=== PATIENT | female | born 1995 | race Caucasian/White ===

== ENCOUNTER 2016-05-02 17:24 | Inpatient (IN) | payer BC ==
[~2016-05-02] VITALS: Ht 166.4 cm; Wt 68.5 kg
--- NOTE | ~2016-05-02 | ER ---
PATIENT'S NAME: SIMEON CARTER [facility] AGE: 20 Y [address] ROOM: [place] [address] LOCATION: [facility] [place] ADMIT DATE: 05/02/2016 ER/Outpatient Report DISCHARGE DATE: FAMILY PHYSICIAN: Madelyn Nieto MD ATTENDING PHYSICIAN: SHAUNA DENNEY TIME OF ARRIVAL: 1729 hours. TIME OF EXAM: 1729 hours. CHIEF COMPLAINT: Right lower quadrant abdominal pain. HISTORY OF PRESENT ILLNESS: The patient states she woke up at about 06:30 this morning, had some generalized abdominal pain, it has worsened throughout the day, it occurs about 1:30 this afternoon. She states the pain became more constant, it waved in severity, but it just seemed different than her normal abdominal pain that she has with her Crohn's disease. She reports she did have some problems with constipation over the weekend, took some MiraLAX, had a large stool on Friday, and then has had normal stools on a daily basis ever since Friday. She states she is nauseated today, but has not vomited. Pain is localized into the right lower quadrant. She did go to Dr. Madelyn Nieto's office this afternoon and was evaluated there. They did do a CBC, white count was 7.3, hemoglobin was 13.9 with hematocrit of 40.3. Chem panel was completed and is within normal limits. They did do UA on her. It shows rare white cells, trace bacteria. Dipstick showed positive ketones and trace of blood. Dr. Nieto was concerned with the pain being localized in the right lower quadrant and sent her here to the ER for further evaluation. ALLERGIES: LACTOSE INTOLERANCE, WHEAT. NO KNOWN DRUG ALLERGIES. CURRENT MEDICATIONS: Current medications are available on the chart and were reviewed by me. PAST MEDICAL HISTORY: Crohn's disease without any complication, has not had any abdominal surgeries; rheumatoid arthritis, and allergic rhinitis. PAST SURGERIES: Had tear duct surgery as a baby and had placement of a Mirena. PATIENT'S NAME: SIMEON CARTER [facility] AGE: 20 Y [address] ROOM: [place] [address] LOCATION: [facility] [place] ADMIT DATE: 05/02/2016 ER/Outpatient Report DISCHARGE DATE: FAMILY PHYSICIAN: Madelyn Nieto MD ATTENDING PHYSICIAN: SHAUNA DENNEY SOCIAL HISTORY: She presents to the ER with her mom. She is currently a student. REVIEW OF SYSTEMS: All negative other than those mentioned in the HPI. PHYSICAL EXAMINATION: VITAL SIGNS: She weighed 69.3 kg. Blood pressure is 145/74, pulse of 117, respirations 16, temp of 100.4, tympanic, and O2 sat was 98% on room air. GENERAL: She is awake, alert, and oriented x4. SKIN: [place], warm, and dry. RESPIRATIONS: Even and nonlabored. Lung sounds were clear throughout. HEART: Regular rate and rhythm. ABDOMEN: Soft and nondistended. Bowel sounds are present. She is very tender in the right lower quadrant. Mild palpation caused her to start crying. NEUROLOGIC: She walks with a steady even gait. Does not stoop over as in discomfort. LABORATORY DATA: She was able to give us a clean-catch UA upon arrival to the ER. Urine was done and it was negative. EMERGENCY DEPARTMENT COURSE: Saline lock was initiated. She was given Zofran 4 mg IV and morphine [address] of the abdomen was completed. Radiologist states that the appendix are not easily visualized, he does not see any kind of abscess, she does have some free fluid, and he questions about possible intussusception. The patient was reviewed with Dr. Culp. Dr. Felix was contacted. He felt at this time she sounded more like a flare-up of her Crohn's versus a surgical problem. I did call and talk to Dr. Kay. He agrees that the patient needs to be placed in observation for fluids, pain control, antibiotics, and control of the Crohn's flare up. Dr. Painter, the hospitalist was contacted, agrees to admit the patient. IMPRESSION: 1. Right lower quadrant abdominal pain. 2. Crohn's disease. PLAN: The patient will be admitted per hospitalist with GI consult. Dr. Denney did come down to the ER and examine the patient briefly before she went upstairs. The patient and her parents are aware of the plan of care. PATIENT'S NAME: SIMEON CARTER [facility] AGE: 20 Y [address] ROOM: [place] [address] LOCATION: [facility] [place] ADMIT DATE: 05/02/2016 ER/Outpatient Report DISCHARGE DATE: FAMILY PHYSICIAN: Madelyn Nieto MD ATTENDING PHYSICIAN: SHAUNA DENNEY GA PADILLA DO DJ/modl /[id number] d: 05/03/16 0103 t: 05/11/16 0854, OUTPATIENT REPORT
--- NOTE | ~2016-05-02 | HP ---
PATIENT'S NAME: SIMEON CARTER [facility] AGE: 20 Y [address] ROOM: [place] [address] LOCATION: [facility] [place] ADMIT DATE: 05/02/2016 History & Physical DISCHARGE DATE: FAMILY PHYSICIAN: Madelyn Nieto MD ATTENDING PHYSICIAN: SHAUNA DENNEY DATE OF SERVICE: CHIEF COMPLAINT: Abdominal pain. HISTORY OF PRESENT ILLNESS: This is a 20-year-old female with a past medical history remarkable for Crohn's disease diagnosed 9 years ago already, her primary residential program director is in [place], [place], and she has had 2 flare of Crohn's disease attack in the past. The story is that last Friday the patient was suffering from constipation; so, she took some MiraLAX and on this Friday she had a normal bowel movement. However, this morning, she started to experience this right lower quadrant abdominal pain about a 3/10 in intensity gradually getting worse up to 8/10, it is constant, and it feels like a dull sharp type of pain. Associated with nausea, but she did not vomit. Her last bowel movement was this morning and it was normal. Because of the worsening pain, the patient went to see her primary care physician who in return sent over here for further evaluation. The patient denies any fever, chills, or any other symptoms besides the right lower quadrant abdominal pain and nausea. She has never had any prior abdominal surgery. REVIEW OF SYSTEMS: As mentioned in the history of present illness. All other systems reviewed and negative except those mentioned in the history of present illness. PAST MEDICAL HISTORY: 1. Crohn's disease, diagnosed 9 years ago already. She has had 2 flares of Crohn's disease in the past. Her primary residential program director is in [place]. 2. Seasonal allergies. 3. 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 ALLERGIES: NO KNOWN DRUG ALLERGIES, ACCORDING TO THE PATIENT. HOME MEDICATIONS: Currently, it is being reconciled. The patient does use a Humira for her rheumatoid arthritis and for her Crohn's disease. PATIENT'S NAME: SIMEON CARTER [facility] AGE: 20 Y [address] ROOM: [address] [address] LOCATION: [facility] [place] ADMIT DATE: 05/02/2016 History & Physical DISCHARGE DATE: FAMILY PHYSICIAN: Madelyn Nieto MD ATTENDING PHYSICIAN: SHAUNA DENNEY SOCIAL HISTORY: She denies any alcohol, illegal drug, or cigarette use. PAST SURGICAL HISTORY: No prior surgical history in the past. FAMILY HISTORY: Father had melanoma, mother is healthy, and her siblings are also healthy. No history of Crohn's disease or ulcerative colitis in the first-degree family member. PHYSICAL EXAMINATION: VITAL SIGNS: At the time of my dictation, temperature 98, blood pressure 130/80, heart rate 85, respirations 14, and saturation 100% on room air. GENERAL APPEARANCE: Alert and oriented x3, in no acute distress. HEENT: Pupils are equally round and reactive to light. Extraocular muscles intact. Anicteric sclerae. Nasal turbinates are normal bilaterally. Moist oral mucosa. NECK: No JVD. No cervical lymphadenopathy. CARDIOVASCULAR: Regular rate and rhythm. Normal S1, S2. No murmur. No rubs. No gallops. RESPIRATORY: Clear. ABDOMEN: Soft, mildly tender to palpation in the right lower quadrant, no rebound tenderness, no abdominal rigidity, bowel sounds are present, I could not appreciate any hepatomegaly. EXTREMITIES: No edema in upper or lower extremities. NEUROLOGICAL: Grossly nonfocal. SKIN: No ulcer, no rash, no cyanosis. MUSCULOSKELETAL: No joint pain. No muscle pain. Range of motion intact. LABORATORY DATA: Lactic acid 1.1. White blood cell 8.9, hemoglobin 12.2, hematocrit 37.4, and platelet 287. Glucose 80, BUN 13, creatinine 0.8, sodium 139, potassium 4.0, chloride 104, CO2 24, calcium 8.6, total protein 8.2, albumin 3.3, AST 11, ALT 12, alkaline phosphatase 84, total bilirubin 0.4, direct bilirubin 0.1, phosphorus 3.0, magnesium 2.4, anion gap 15, GFR more than 60, ESR pending, iron 1.1. Urinalysis pending. Urine test negative. Procalcitonin less than 0.05. CRP 4.29. IMAGING STUDIES: CT scan of the abdomen and pelvis with contrast show areas of bowel wall thickening and inflammatory changes involving the distal small bowel and the cecum and ascending colon. In addition, there are questionable findings of short-segment intussusception involving a loop of bowel seen on imaging 84. PATIENT'S NAME: MESEURE, ASHLYNE B [facility] AGE: 20 Y [address] ROOM: [address] [place] [id number] LOCATION: [facility] [place] ADMIT DATE: 05/02/2016 History & Physical DISCHARGE DATE: FAMILY PHYSICIAN: Madelyn Nieto MD ATTENDING PHYSICIAN: SHAUNA DENNEY Findings are most likely secondary to the patient's reported history of Crohn's disease. The patient's appendix is not visualized. Given the inflammatory change, appendicitis cannot be excluded. ASSESSMENT AND PLAN: 1. Right lower quadrant pain, likely secondary to Crohn's disease flare: The finding on the CT scan of abdomen and pelvis was already discussed from the ER nurse practitioner, Michaela with the on-call general surgeon, Dr. Felix. From the verbal sign-out that I got from Michaela is that appendicitis is less likely and is more likely Crohn disease flare. Intussusception also less likely according to Michaela and recommended a GI consult. No surgical urgency at the moment according to report given to me by ER staff Michaela. The plan for her will be treat her as a Crohn's disease flare with intravenous Solu-Medrol 30 mg b.i.d., antibiotics with intravenous ciprofloxacin and intravenous Flagyl, and pain control with intravenous morphine p.r.n. and intravenous fentanyl p.r.n., n.p.o., and intravenous fluids with D5 half-normal saline and 20 mEq potassium chloride running at 75 mL/hr for maintenance. I will check procalcitonin, lactic acid, CBC, BMP, ESR, and CRP tomorrow morning again. I will check a KUB in the morning to make sure there is no bowel perforation. Blood culture and urine cultures already obtained. The patient does not look septic and there is no leukocytosis. Further plan depends on clinical course. I will consult GI in the morning. 2. Deep vein thrombosis prophylaxis: The patient will be on compression devices in case the patient will require colonoscopy. 3. Code status: She is a full code. Time spent in care on the day of admission 40 minutes including chart review, interviewing and examining the patient, addressing all the questions and concerns that the patient and the patient's family members had, and going over the plan of care in detail with the patient and nurses and also family members. MD DEMETRIS BLAS/adryan /[id number] D: [id number] T: [id number] HISTORY & PHYSICAL
--- NOTE | ~2016-05-02 | DS ---
[facility] 20 Y [address] ROOM: [address] [address] LOCATION: [facility] [place] ADMIT DATE: 05/02/2016 Discharge Summary DISCHARGE DATE: 05/04/2016 FAMILY PHYSICIAN: Madelyn Nieto MD ATTENDING PHYSICIAN: Abraham Miller PRINCIPAL/DISCHARGE DIAGNOSIS: Crohn disease, acute flare. SECONDARY DIAGNOSIS: Abdominal pain. HISTORY OF PRESENT ILLNESS: A 20-year-old very pleasant lady presented with abdominal pain. She did carry the history of Crohn disease and is currently on Humira. A CT scan was done in the emergency department which was consistent with the Crohn's flare-up. Concern for appendicitis was ruled out by calling General Surgery. She was treated with IV steroids, ciprofloxacin as well as Flagyl. Gastroenterology consultation was obtained. She recovered uneventfully during the rest of the course of the hospitalization. Laboratory works on the discharge were reviewed and were unremarkable. She will be sent home on oral steroids, Flagyl as well as ciprofloxacin. DISCHARGE MEDICATIONS: 1. Humira every 2 weeks. 2. Cetirizine 10 mg p.o. every day. 3. Levonorgestrel control pill. 4. Benadryl 25 mg p.o. at bedtime p.r.n. 5. Ciprofloxacin 500 mg p.o. b.i.d. for 7 days. 6. Flagyl 500 mg t.i.d. p.o. for 5 days. 7. Prednisone 60 mg p.o. every day for 5 days, 40 mg of prednisone p.o. for 5 days, and then 20 mg prednisone for 5 days p.o. DISCHARGE INSTRUCTIONS: 1. Diet: As tolerated. 2. Activity: As tolerated. FOLLOW-UP PLAN: Follow up with Gastroenterology at [facility] as previously scheduled. MD BRUCE VALLE/adryan PATIENT'S NAME: SIMEON CARTER [facility] AGE: 20 Y [address] ROOM: [address] [address] LOCATION: [facility] [place] ADMIT DATE: 05/02/2016 Discharge Summary DISCHARGE DATE: 05/04/2016 FAMILY PHYSICIAN: Madelyn Nieto MD ATTENDING PHYSICIAN: Abraham Miller /[id number] d: 05/04/162003 t: 05/07/16 1203, DISCHARGE SUMMARY
--- NOTE | ~2016-05-02 | CON ---
PATIENT'S NAME: SIMEON CARTER [facility] AGE: 20 Y [address] ROOM: [address] [address] LOCATION: [facility] [place] ADMIT DATE: 05/02/2016 Consultation DISCHARGE DATE: FAMILY PHYSICIAN: Madelyn Nieto MD ATTENDING PHYSICIAN: SHAUNA DENNEY DATE OF CONSULTATION: 05/03/2016 REFERRING PHYSICIAN: Keli Linton MD REASON FOR CONSULTATION: Abdominal pain and history of Crohn disease. HISTORY OF PRESENT ILLNESS: This is a very pleasant, 20-year-old female with a significant past medical history for Crohn disease diagnosed approximately 9 years ago as well as rheumatoid arthritis diagnosed approximately 2 years ago. The patient has been on numerous Crohn medications including 6-MP and methotrexate. approximately 2 years ago. She was recently placed on Humira every 2 weeks and has done well since. She, over the past weekend, did feel that she was constipated. She did take some MiraLAX, and on Friday, had a normal bowel movement. However, on the morning of presentation, she began having right lower quadrant abdominal pain with increasing intensity that gradually worsened. This was described as a dull but sharp type of pain. She presented to her primary care physician as it was thought that she had an appendicitis. The patient was then transferred to [facility] for further evaluation of a CAT scan completed. This was reviewed by our hospitalist team as well as Surgery as it was thought it was more of a Crohn exacerbation versus appendicitis. We were asked to see in consultation regarding the patient's Crohn exacerbation. The patient was seen and examined. She does report having a fever at home at 101. She denies any blood in her stool. She denies any diarrhea as well. She complains of right lower quadrant abdominal pain, though she does state that it has significantly improved since initial presentation. She does have some intermittent nausea, though she does state that she is starting to increase her appetite. The patient denies any previous history of abdominal surgeries. She does follow with [facility] in [place] regarding her Crohn disease. Her last colonoscopy was approximately 2 years ago. PAST MEDICAL HISTORY: Crohn disease and rheumatoid arthritis. PAST SURGICAL HISTORY: Colonoscopy approximately 2 years ago. PATIENT'S NAME: SIMEON CARTER [facility] AGE: 20 Y [address] ROOM: [id number] [place], [place] [address] LOCATION: [facility] [place] ADMIT DATE: 05/02/2016 Consultation DISCHARGE DATE: FAMILY PHYSICIAN: Madelyn Nieto MD ATTENDING PHYSICIAN: SHAUNA DENNEY SOCIAL HISTORY: The patient denies any alcohol, tobacco, or illicit drug use. FAMILY HISTORY: The patient's father had melanoma. No history of inflammatory bowel disease in first-degree relatives as well as any other gastrointestinal diseases. ALLERGIES: NO KNOWN MEDICATION ALLERGIES. CURRENT MEDICATIONS: Please refer to the medication administration record. REVIEW OF SYSTEMS: A 10-point review of systems was completed, all were negative except for those identified in the History of Present Illness. PHYSICAL EXAMINATION: GENERAL: A very pleasant, 20-year-old female who appears to be in no acute distress. VITAL SIGNS: Temperature 97.6, pulse of 68, respirations of 12, blood pressure 105/54, and oxygen saturation is 97% on room air. SKIN: [place], warm, and dry. No jaundice. HEENT: Head is normocephalic and atraumatic. Pupils are equal, round, and reactive to light. Sclerae are clear, nonicteric. Oral mucosa is pink and moist. No thyromegaly. NECK: Soft and supple. CARDIOVASCULAR: Regular. Normal S1 and S2. RESPIRATORY: Respirations even and unlabored. Lungs clear to auscultation. ABDOMEN: Soft and round. Mildly tender in the right lower quadrant and right upper quadrant. No rebound, rigidity, or guarding noted. Bowel sounds positive x4 quadrants. MUSCULOSKELETAL: No muscle weakness or atrophy. EXTREMITIES: No clubbing, cyanosis, or edema. NEUROLOGICAL: Grossly nonfocal. LABORATORY AND DIAGNOSTIC DATA: Lactate is 0.8. White blood cell count of 6.1, hemoglobin 11.8, hematocrit of 35.7, and platelets of 285. Chemistry panel includes a glucose of 124, BUN of 12, creatinine 0.8, sodium 137, potassium of 4.2, chloride of 106, and CO2 of 23. Albumin of 3.3. AST of 11, ALT of 12, and alkaline phosphatase of 84. Total bilirubin 0.4 and direct bilirubin 0.1. Phosphorus of 3.0. Magnesium of 2.4. Sedimentation rate of 68. Prothrombin time 11.1, INR 1.1, and PTT of 30. CRP is elevated at 4.98. CT of abdomen and pelvis that was completed on admission did show areas of bowel wall thickening, inflammatory changing PATIENT'S NAME: SIMEON CARTER [facility] AGE: 20 Y [address] ROOM: [address] [place], [place] [address] LOCATION: [facility] [place] ADMIT DATE: 05/02/2016 Consultation DISCHARGE DATE: FAMILY PHYSICIAN: Madelyn Nieto MD ATTENDING PHYSICIAN: SHAUNA DENNEY involving the distal small bowel, cecum, and ascending colon. In addition, there is questionable findings of short-segment intussusception involving a loop of small bowel seen. Findings most likely secondary to the patient's reported history of Crohn disease. ASSESSMENT AND PLAN: Again, this is a very pleasant, 20-year-old female, who was diagnosed approximately 9 years ago with Crohn disease, who has recently been on Humira for the past 2 years. The patient has done well on this, though was admitted with acute Crohn exacerbation. The patient currently has been placed on Cipro and Flagyl as well as methylprednisone [address] scan was reviewed per Dr. Keli Linton with Dr. Turner. It appears that significant inflammation is seen. We will request for any previous imaging to be sent to us for comparison. We also recommend continuing the Cipro and Flagyl as well as steroids. The patient will be advanced on clear liquids for toleration. Further recommendations to be given over the patient's course of the hospitalization. Thank you for this consult and for allowing us to participate in the care of this patient. We will continue to monitor, evaluate, and treat as appropriate. KRISTOFER ANDERSON APRN FOR KELI LINTON MD MMF/modl /[id number] d: 05/03/16 1358 t: 05/07/16 1602, CONSULTATION REPORT
[2016-05-02 20:44] LABS: BASOPHIL % 0.3 %; EOSINOPHIL % 0.2 %; HEMATOCRIT 37.4 % (33.0-46.0); HEMOGLOBIN 12.2 g/dL (11.0-15.0); IMMATURE GRANULOCYTE % 0.1 %; LYMPHOCYTE # 1.8 K/uL (0.8-4.0); LYMPHOCYTE % 19.9 %; MCH 28.7 pg (27.0-34.0); MCHC 32.6 gm/dL (32.0-36.5); MONOCYTE # 0.9 K/uL (0.0-1.0); MONOCYTE % 10.6 %; MPV 9.5 fl (9.4-12.4); NEUTROPHIL # (ANC) 6.1 K/uL (1.8-7.8); NEUTROPHIL % 68.9 %; NRBC % 0 /100WBC (0-0.00); PLATELET COUNT 287 K/uL (150-450); RBC 4.25 M/uL (3.50-5.00); RDW-CV 11.6 % (11.9-14.6); WBC 8.9 K/uL (4.0-11.0)
[2016-05-02 20:55] LABS: INR - (THERAPEUTIC) 1.1 (0.9-1.1); PROTIME 11.1 SECONDS (9.6-11.1); PTT 30 SECONDS (25-32)
[2016-05-02 21:01] LABS: ALBUMIN 3.3 gm/dL (3.5-5.0); ALK PHOS 84 IU/L (33-138); ALT 12 IU/L (12-78); AST 11 IU/L (10-40); BLOOD UREA NITROGEN 13 mg/dL (6-24); CALCIUM 8.6 mg/dL (8.5-10.5); CHLORIDE 104 mMol/L (96-110); CO2 24 mMol/L (22-32); CREATININE 0.8 mg/dL (0.5-1.1); ESTIMATED GFR (MDRD EQUATION) > 60; MAGNESIUM 2.4 mg/dL (1.3-2.6); SODIUM 139 mMol/L (135-145); TOTAL BILIRUBIN 0.4 mg/dL (0.0-1.5); TOTAL PROTEIN 8.2 g/dL (6.0-8.4)
[2016-05-02] MEDS ORDERED: HUMIRA40 MG/0.1 SUB-Q (21:47)
[2016-05-02] MEDS ORDERED: MIRENA1 EACH VAG (22:23)
[2016-05-02] MEDS ORDERED: ZYRTEC10 MG PO (22:23)
[2016-05-02] MEDS ORDERED: BENADRYL25 MG PO (22:24)
--- NOTE | 2016-05-03 00:59 | NUR ---
Pt admitted for R)abdominal pain. Hx of crohns disease. Thought she was constipated but thinks it may be a flare up of her crohns. NPO for tests being done. IV fluids with intermittent antibiotics. Ambulates independently. VSS on RA. No known allergies. No skin issues.
--- NOTE | 2016-05-03 04:00 | NUR ---
Significant Event: Pt is alert and oriented. VSS on RA. IV fluids running with intermittent antibiotics. Independent in room. No complaints of pain or nausea since being on floor. NPO for test today. Follow Up: Continue to monitor.
[2016-05-03 05:56] LABS: BASOPHIL % 0.2 %; HEMATOCRIT 35.7 % (33.0-46.0); HEMOGLOBIN 11.8 g/dL (11.0-15.0); IMMATURE GRANULOCYTE % 0.3 %; LYMPHOCYTE # 0.9 K/uL (0.8-4.0); LYMPHOCYTE % 14.2 %; MCH 28.9 pg (27.0-34.0); MCHC 33.1 gm/dL (32.0-36.5); MCV 87.5 fl (83.0-98.0); MONOCYTE # 0.1 K/uL (0.0-1.0); MONOCYTE % 1.5 %; MPV 9.4 fl (9.4-12.4); NEUTROPHIL # (ANC) 5.1 K/uL (1.8-7.8); NEUTROPHIL % 83.8 %; NRBC % 0 /100WBC (0-0.00); PLATELET COUNT 285 K/uL (150-450); RBC 4.08 M/uL (3.50-5.00); RDW-CV 11.5 % (11.9-14.6); WBC 6.1 K/uL (4.0-11.0)
[2016-05-03 06:19] LABS: ANION GAP 12.2 (10.0-19.0); BLOOD UREA NITROGEN 12 mg/dL (6-24); CALCIUM 8.5 mg/dL (8.5-10.5); CHLORIDE 106 mMol/L (96-110); CO2 23 mMol/L (22-32); CREATININE 0.8 mg/dL (0.5-1.1); ESTIMATED GFR (MDRD EQUATION) > 60; POTASSIUM 4.2 mMol/L (3.7-5.1); SODIUM 137 mMol/L (135-145)
--- NOTE | 2016-05-03 16:20 | NUR ---
Significant Event: PT AO. VSS ON RA, AFEBRILE. KUB DONE THIS AM. GI CONSULTED. ADVANCED TO CLEAR LIQUID DIETS. IVF RUNNING TO AC. CONTINUES ON IV ABX. UP AD JULIA IN ROOM. AMBULATED IN [place] WITH FAMILY. DENIED PAIN AND NAUSEA THROUGH SHIFT. Follow up: CONTINUE TO MONITOR
--- NOTE | 2016-05-04 05:02 | NUR ---
Significant Event: Pt is alert and oriented. VSS on RA. IV to the R)AC with IVF and intermittent antibiotics. Tolerating clear liquid diet. No complaints of pain or nausea. Ambulates ad kalyan in room and hallways. Follow Up: Continue to monitor.
[2016-05-04 06:00] LABS: BASOPHIL % 0.2 %; HEMATOCRIT 31.8 % (33.0-46.0); HEMOGLOBIN 10.5 g/dL (11.0-15.0); IMMATURE GRANULOCYTE # 0.1 K/uL (0.0-0.3); IMMATURE GRANULOCYTE % 0.6 %; LYMPHOCYTE # 1.3 K/uL (0.8-4.0); MCH 28.8 pg (27.0-34.0); MCV 87.4 fl (83.0-98.0); MONOCYTE # 0.6 K/uL (0.0-1.0); MONOCYTE % 6.1 %; MPV 9.7 fl (9.4-12.4); NEUTROPHIL # (ANC) 8.3 K/uL (1.8-7.8); NEUTROPHIL % 80.1 %; NRBC % 0 /100WBC (0-0.00); PLATELET COUNT 268 K/uL (150-450); RBC 3.64 M/uL (3.50-5.00); RDW-CV 11.7 % (11.9-14.6); WBC 10.3 K/uL (4.0-11.0)
[2016-05-04 06:15] LABS: ANION GAP 9.2 (10.0-19.0); BLOOD UREA NITROGEN 7 mg/dL (6-24); CALCIUM 8.1 mg/dL (8.5-10.5); CHLORIDE 110 mMol/L (96-110); CO2 26 mMol/L (22-32); CREATININE 0.6 mg/dL (0.5-1.1); ESTIMATED GFR (MDRD EQUATION) > 60; POTASSIUM 4.2 mMol/L (3.7-5.1); SODIUM 141 mMol/L (135-145)
[2016-05-04] MEDS ORDERED: CIPRO500 MG PO (14:59)
[2016-05-04] MEDS ORDERED: FLAGYL500 M1 PO (15:00)
[2016-05-04] MEDS ORDERED: DELTASONE5 MG PO (15:06)
--- NOTE | 2016-05-04 15:22 | NUR ---
A&O. IND. NO C/O OF PAIN ALL SHIFT. TOLERATING DIET. LS CLEAR. VSS. INT ATBX SWITCHED TO PO. VD'S WELL. MOD HARD BM TODAY. DISMISSAL INSTRUCTIONS REVIEWED QUESTIONS ANSWERED. DC'D R AC IV. PT TAKENT TO LOBBY VIA WC WITH MOTHER TO PRIVATE VEHICLE HOME
== END 2016-05-04 15:30 | disposition disaster alternative care site (69) | DRG 387 ==
LOC: GMED 17:24 → GMSU 20:26
PROVIDERS: Nurse Practitioner Family; ADMIT Internal Medicine
DX: K50.90 Crohn's disease, unspecified, without complications (principal); J30.2 Other seasonal allergic rhinitis; M06.9 Rheumatoid arthritis, unspecified
CPT/HCPCS: J0744; J2270; J2405; J2920; J3480; J7050; Q9967

== ENCOUNTER → 2016-06-19 | Outpatient (CLI) | payer BC ==
[~2016-06-19] MED LIST: BENADRYL25 MG PO; CIPRO500 MG PO; DELTASONE5 MG PO; FLAGYL500 M1 PO; HUMIRA40 MG/0.1 SUB-Q; MIRENA1 EACH VAG; ZYRTEC10 MG PO
[2016-06-19 08:43] LABS: CREATININE 0.8 mg/dL (0.5-1.1)
[2016-06-19 08:49] LABS: ESTIMATED GFR (MDRD EQUATION) > 60
== END | disposition disaster alternative care site (69) ==
LOC: GRAD 08:00 → GLAB 08:00 → GRAD 08:10
PROVIDERS: Internal Medicine Gastroenterology
DX: K50.90 Crohn's disease, unspecified, without complications (principal); K52.89 Other specified noninfective gastroenteritis and colitis
CPT/HCPCS: Q9967